=== PATIENT | female | born 1965 | race Caucasian/White ===

== ENCOUNTER 2022-05-17 11:36 | Emergency (ER) | payer MEDICAID ==
[~2022-05-17] VITALS: Ht 162.6 cm; Wt 79.4 kg
[2022-05-17] MEDS ORDERED: METH4PAK PO (12:45)
[2022-05-17] MEDS ORDERED: AZIT1POW PO (12:45)
[2022-05-17 15:28] VITALS: BP 146/92
== END 2022-05-17 15:30 | disposition home or self-care (01) ==
LOC: ER 11:36
DX: U07.1 COVID-19 (principal); K21.9 Gastro-esophageal reflux disease without esophagitis; E78.5 Hyperlipidemia, unspecified; I10 Essential (primary) hypertension; Z90.710 Acquired absence of both cervix and uterus; Z87.442 Personal history of urinary calculi
CPT/HCPCS: 36415; 71045